=== PATIENT | male | born 1990 | race Hispanic/Latino ===

== ENCOUNTER 2021-07-23 16:57 | Emergency (ER) | payer OTHER ==
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
[2021-07-23] MEDS ORDERED: CYCLOBENZAPRINE 10 MG TAB ONE (20:15)
[2021-07-23] MEDS ORDERED: KETOROLAC 30 MG/ML INJ ONE (20:16)
[2021-07-23 20:40] VITALS: BP 151/88; TEMP 98; O2SAT 99
== END 2021-07-23 20:25 | disposition home or self-care (01) ==
LOC: ER 16:57
DX: S16.1XXA Strain of muscle, fascia and tendon at neck level, initial encounter (principal); V49.40XA Driver injured in collision with unspecified motor vehicles in traffic accident, initial encounter
CPT/HCPCS: 96372; 99283